=== PATIENT | female | born 1985 | race African-American/Black ===

== ENCOUNTER 2016-09-22 08:49 | Day surgery (SDC) | payer OTHER ==
[~2016-09-22] VITALS: Ht 149.9 cm; Wt 50.9 kg
[~2016-09-22 08:49] MED LIST: Motrin PO; NUVARING VAGIN1 EACH VG; Percocet 5/325,Endoc PO
[2016-09-22 09:42] VITALS: BP 111/60
[2016-09-22 11:40] VITALS: BP 115/77
[2016-09-22 12:58] VITALS: BP 109/54
== END 2016-09-22 12:50 | disposition home or self-care (01) ==
LOC: SDC 08:49
DX: Z30.2 Encounter for sterilization (principal); N97.1 Female infertility of tubal origin; R01.1 Cardiac murmur, unspecified; D64.9 Anemia, unspecified; Z83.3 Family history of diabetes mellitus; Z80.41 Family history of malignant neoplasm of ovary; Z82.49 Family history of ischemic heart disease and other diseases of the circulatory system; Z81.1 Family history of alcohol abuse and dependence; F17.210 Nicotine dependence, cigarettes, uncomplicated
CPT/HCPCS: J1100; J1885; J2405; J3010

== ENCOUNTER 2017-08-19 08:24 | Day surgery (SDC) | payer OTHER ==
[~2017-08-19] VITALS: Ht 149.9 cm; Wt 51.3 kg
[2017-08-19 09:20] LABS: HEMATOCRIT 33.6 % (36.0-46.0); HEMOGLOBIN 11.4 G/DL (11.9-15.5); MCH 30.6 PG (29.0-34.0); MCHC 33.9 G/DL (30.0-36.0); MCV 90.1 FL (83-99); PLATELET COUNT 270 K/uL (156-360); RBC DIS.WIDTH-CV 12.6 % (11.8-14.6); RBC DIS.WIDTH-SD 41.1 % (39-53); RED BLOOD COUNT 3.73 M/uL (3.80-5.20); WHITE BLOOD COUNT 6.9 K/uL (4.1-10.2)
[2017-08-19 09:56] LABS: CHLORIDE 107 mEq/L (99-109)
[2017-08-19 09:57] LABS: POTASSIUM 4.2 mEq/L (3.7-5.4); SODIUM 136 mEq/L (136-147)
[2017-08-19 09:58] LABS: GLUCOSE 103 mg/dL (70-99)
[2017-08-19 10:02] LABS: CREATININE 0.7 mg/dL (0.6-1.3); GFR ESTIMATE (CALCULATED) > 59 mL/min/
[2017-08-19 10:03] LABS: UREA NITROGEN (BUN) 14 mg/dL (9-23)
[2017-08-19] MEDS ORDERED: TYLENOL EXTRA500 MG PO (15:00)
[2017-08-19] MEDS ORDERED: ROXICODONE5 MG PO (15:00)
[2017-08-19 15:33] LABS: HEMATOCRIT 24.2 % (36.0-46.0); HEMOGLOBIN 7.8 G/DL (11.9-15.5)
[2017-08-19 17:29] VITALS: BP 94/52
[2017-08-19 17:57] VITALS: BP 92/53
[2017-08-19 18:16] VITALS: BP 92/48
[2017-08-19 18:30] VITALS: BP 97/49
[2017-08-19 19:10] VITALS: BP 95/53
== END 2017-08-19 19:32 | disposition home or self-care (01) ==
LOC: EME 08:24 → SDC 13:36
PROVIDERS: Nurse Practitioner Family; Obstetrics & Gynecology
DX: O00.101 Right tubal pregnancy without intrauterine pregnancy (principal); K66.1 Hemoperitoneum; F17.210 Nicotine dependence, cigarettes, uncomplicated
CPT/HCPCS: 76801; 80048; 84702; 85014; 85018; 85027; 86850; 86900; 86901; 86920; 99281; 99285; J0131; J0330; J0690; J2250; J2405; J2710; J3010; J7030; J7643; S0020